=== PATIENT | male | born 1955 | race Caucasian/White ===

== ENCOUNTER 2017-06-22 08:34 | Emergency (ER) | payer MEDICAID, OTHER ==
[2017-06-22] MEDS ORDERED: predniSONE 20 MG TAB PO ONE (09:24)
--- NOTE | 2017-06-22 09:24 | EDPHY ---
General Narrative: CHIEF COMPLAINT: Neck pain HISTORY OF PRESENT ILLNESS: Patient complains of 3 months history of left-sided neck pain. This was gradual in onset. Constant duration. The pain does wax and wane but never fully goes away. It is isolated to the left trapezius muscle. Occasionally radiates to the left arm. There is no numbness or tingling. The pain is worse with lateral rotation and extension of the neck. He does occasional have a very mild headache but not currently at this time. He has attempted over-the- counter and prescription to ibuprofen. He was seen by chiropractor 3 weeks ago. He had a manipulation done. Since then he has had no worsening and no improvement of his symptoms. He has not yet been evaluated by anyone else. No other associated complaints or modifying factors. REVIEW OF SYSTEMS: Ten systems reviewed and are negative unless otherwise noted in the HPI PCP: Dr. 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 SOCIAL HISTORY: Nonsmoker. Occasional alcohol use. Occasional marijuana use. FAMILY HISTORY: Noncontributory EXAMINATION General Appearance: Alert, no distress Head: normocephalic, atraumatic Eyes: Pupils equal and round, no conjunctival pallor or injection ENT, Mouth: Mucous membranes moist. Airway widely patent Neck: Normal inspection, supple, no midline tenderness. No crepitus, step-off or deformity. There is left trapezius tenderness Respiratory: Lungs are clear to auscultation Cardiovascular: Regular rate and rhythm. No murmur. Symmetric radial pulses 2+ . Back: non-tender, no bony abnormalities. No crepitus or deformity Neurological: GCS 15. Cranial nerves 2-12 grossly intact. A&O, nonfocal, baseline gait with chronic left footdrop. Strength is symmetric in the shoulders, elbows and wrist. Interossei strength is symmetric. Skin: Warm and dry, no rash. No petechiae or purpura Extremities: Nontender, no pedal edema Psychiatric: Mood and affect normal DIFFERENTIAL DIAGNOSES: Including but not limited to cervical radiculopathy, muscular strain, sprain, carotid dissection, acute cord compression MDM: 9:24 a.m. Left-sided neck pain with possible cervical radiculopathy. There is no evidence of acute cord compression. He is neuro intact in the upper extremities symmetrically. Clinical suspicion for dissection is very low as the patient's pain was present prior to chiropractor evaluation, and his evaluation and manipulation was 3 weeks ago without change in his symptoms. I discussed with Dr. Mccullough and he agrees. I did offer CT angiogram to the patient of the head and neck. He has declined. I do feel that this is reasonable given his history and exam. I have ordered a plain film of the cervical spine, prednisone and if the x-ray is negative, which I assume will be , plan for discharge home with short course of steroid, muscle relaxant and referral to a data integrity specialist. He is in no acute distress and he is in agreement with this plan. 10:25 a.m. X-ray of the cervical spine reveals multilevel degenerative disc without any acute fracture. This does match the patient's clinical picture. He remains neuro intact and I do not feel he warrants MRI or CT at this time. Discharged home with short course of steroid, pain medication Flexeril. We had discussion for strict ED precautions for worsening pain, any headache of any kind, numbness , tingling or weakness. He will contact the on-call primary care physician to establish, and he has been provided the on-call neurosurgery information for outpatient follow-up. He is comfortable this plan and discharged home stable condition. SUPERVISION: Patient was independently examined, but I discussed the case with my secondary supervising physician Dr. Mccullough - Diagnostics Imaging Results: Imaging Impressions Cervical Spine X-Ray 06/22/17 09:24 Impression: Multilevel degenerative disk and degenerative joint disease in the cervical spine most severe at C3-C4 through C6-C7. No evidence for fracture. Reversal of the normal lordotic curvature. - History Smoking Status: Never smoked - Objective Vital Signs: Initial Vital Signs Temperature (C) 97.7 F 06/22/17 08:35 Heart Rate 65 06/22/17 08:35 Respiratory Rate 16 06/22/17 08:35 Blood Pressure 148/91 H 06/22/17 08:35 O2 Sat (%) 92 06/22/17 08:35 O2 Delivery Mode Room Air Allergies/Adverse Reactions: No Known Allergies Allergy (Unverified 12/14/12 11:43) Home Medications: Medication Instructions Recorded Atorvastatin Calcium 06/22/17 Cyclobenzaprine [Flexeril 10 MG 10 mg PO TID PRN #15 tab 06/22/17 (*)] Ibuprofen 06/22/17 oxyCODONE HCL/ACETAMINOPHEN 1 each PO Q4-6PRN PRN #7 tablet 06/22/17 [Percocet 5-325 mg Tablet] predniSONE [Deltasone] 60 mg PO DAILY #12 tablet 06/22/17 Medications Given: Discontinued Medications Prednisone (Prednisone) 60 mg PO EDNOW ONE Stop: 06/22/17 09:25 Last Admin: 06/22/17 10:06 Dose: 60 mg Departure - Departure Disposition: Home, Routine, Self-Care Clinical Impression: Strain of cervical portion of left trapezius muscle, Cervical radicular pain, Degenerative disc disease, cervical Condition: Good Instructions: Cervical Radiculopathy (ED), Acute Neck Pain (ED) Additional Instructions: 1. Medications as prescribed as needed 2. Contact the on-call primary care physician Dr. Dennis as discussed and as provided 3. Contact the on-call neurosurgeon Dr. Sanchez as discussed and as provided 4. Strict ED precautions for worsening pain, any headache of any kind, numbness , tingling, weakness of the left upper extremity Referrals: Emeka Sanchez MD [Medical Doctor] - As per Instructions Jacinta Dennis DO [Doctor of Osteopathy] - As per Instructions Prescriptions: Cyclobenzaprine [Flexeril 10 MG (*)] 10 mg PO TID PRN #15 tab PRN Reason: Spasms oxyCODONE HCL/ACETAMINOPHEN [Percocet 5-325 mg Tablet] 1 each PO Q4-6PRN PRN #7 tablet PRN Reason: Pain, Breakthrough predniSONE [Deltasone] 60 mg PO DAILY #12 tablet
[2017-06-22 10:37] VITALS: BP 160/97; PULSE 55; RESP 18; TEMP 97.3; O2SAT 93
== END 2017-06-22 10:43 | disposition home or self-care (01) ==
DX: S16.1XXA Strain of muscle, fascia and tendon at neck level, initial encounter (principal); M54.12 Radiculopathy, cervical region; M50.30 Other cervical disc degeneration, unspecified cervical region; X58.XXXA Exposure to other specified factors, initial encounter; Y99.8 Other external cause status; Y93.89 Activity, other specified